=== PATIENT | female | born 2000 | race Caucasian/White ===

== ENCOUNTER 2020-07-31 11:24 | Outpatient (REF) | payer OTHER, SELFPAY | END 2020-07-31 11:25 | disposition home or self-care (01) | LOC: HO.LAB 11:24 | PROVIDERS: Visit Provider Internal Medicine | DX: Z20.828 Contact with and (suspected) exposure to other viral communicable diseases (principal) | CPT/HCPCS: C9803; U0003 ==

== ENCOUNTER 2020-09-04 22:12 | Emergency (ER) | payer OTHER, SELFPAY ==
[2020-09-04 22:37] VITALS: BP 129/80; PULSE 92; RESP 17; TEMP 36.7; O2SAT 98; BMI 33.6
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
[2020-09-04] MEDS: Ibuprofen 600 MG TABLET PO (22:49)
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
--- NOTE | 2020-09-04 23:28 | PC.NURSE ---
PT AMB TO RADIOLOGY.
== END 2020-09-04 23:59 | disposition home or self-care (01) ==
PROVIDERS: Emergency Provider Internal Medicine
DX: S39.012A Strain of muscle, fascia and tendon of lower back, initial encounter (principal); V43.62XA Car passenger injured in collision with other type car in traffic accident, initial encounter; Y93.89 Activity, other specified; Y92.414 Local residential or business street as the place of occurrence of the external cause; Y99.9 Unspecified external cause status
CPT/HCPCS: 72100; 99283; 99284

== ENCOUNTER 2021-01-26 22:26 | Emergency (ER) | payer OTHER, SELFPAY ==
--- NOTE | ~2021-01-26 | XR_ITS ---
EXAMINATION: CHEST 2 VIEWS CLINICAL INFORMATION: COUGH . COMPARISON: No recent pertinent prior studies are available for comparison. TECHNIQUE: PA and lateral views of the chest obtained. FINDINGS: The lungs are well expanded. No focal infiltrate, effusion, edema, or pneumothorax. Cardiac and mediastinal silhouettes are within normal limits for technique. No acute bony abnormality seen XR/XR chest 2V IMPRESSION: No evidence of acute disease
[2021-01-26 22:34] VITALS: BP 138/93; PULSE 114; RESP 22; TEMP 36.9; O2SAT 95; BMI 35.4
[2021-01-26 23:49] LABS: Influenza A PCR NEGATIVE (Negative); Influenza B PCR NEGATIVE (Negative); Resp Syncy Virus RNA Qual PCR NEGATIVE (Negative); SARS COV2 PCR INHOUSE NEGATIVE (Negative)
--- NOTE | 2021-01-27 00:59 | ED_ITS ---
HPI - URI/Sore Throat General Chief Complaint: Upper Respiratory Symptoms Stated Complaint: sob,cough Time Seen by Provider: 01/27/21 00:48 Source: patient Mode of arrival: ambulatory Limitations: no limitations History of Present Illness MD elicited complaint: cough and rhinorrhea Pertinent past history: asthma Onset (ago): week(s) (2) Consistency: intermittent Severity: moderate Description of mucous: clear Able to tolerate fluids by mouth: Yes Exacerbating factors: supine positioning Relieving factors: nothing Associated symptoms: rhinorrhea and cough Treatments prior to arrival: other (trying her inhaler with some relief) Related Data Previous Rx's Medication Instructions Recorded ibuprofen 600 mg PO Q6H PRN #20 tab 09/04/20 cetirizine 10 mg tablet 10 mg PO DAILY PRN 60 Days #60 tab 12/29/20 albuterol sulfate 90 mcg/actuation 2 puff PO Q4-6H PRN #8.5 g 01/14/21 aerosol inhaler albuterol sulfate 2 puff INHALATION QID PRN #6.7 g 01/27/21 fluticasone propionate 1 spray INTRANASAL DAILY #16 g 01/27/21 prednisone 40 mg PO DAILY 4 Days #8 tab 01/27/21 Allergies Allergy/AdvReac Type Severity Reaction Status Date / Time No Known Allergies Allergy Verified 01/26/21 22:34 Review of Systems Review of Systems: Constitutional : No Fever, No Chills ENT/Mouth : No Hoarseness, No sore throat, No Rhinorrhea Eyes: No Redness, No Discharge, No Vision Changes Cardiovascular : No Chest Pain, positive SOB, positive Dyspnea on Exertion, No Edema Respiratory : positive Cough, No Sputum, positive Wheezing, Gastrointestinal : No Nausea, No Vomiting, No Diarrhea, No abdominal Pain Genitourinary : No Dysuria, No Hematuria Musculoskeletal : No joint pain, No Myalgias Skin : No rash Neuro : No Weakness, No Numbness, No Headache Psych : No anxiety, depression Heme/Lymph: No Bruising, No Bleeding Endocrine : No Polyuria, No Polydipsia All other systems reviewed and are negative PMFSH Past Medical History Attestation statement: The following information was validated with the patient. Medical History Asthma Asthma Seasonal allergies Social History Social History Smoking Status: Never smoker Advance Directives: No Advance Directives Information Provided: No Patient : No Physical Exam Vital Signs: Vital Signs: Last Vital Signs Temp 98.0 F 01/27/21 01:01 Pulse 98 01/27/21 01:01 Resp 18 01/27/21 01:01 BP 133/84 01/27/21 01:01 Pulse Ox 100 01/27/21 01:01 Body Mass Index 35.4 Appearance: Alert. Oriented X3. No acute distress. Eyes: Pupils equal, round and reactive to light. ENT: Pharynx normal. Neck: Normal inspection. Neck supple. CVS: Normal heart rate and rhythm. Pulses normal. Respiratory: No respiratory distress. Breath sounds diffuse end exp wheezes mil d Abdomen: Soft and nontender. Skin: Skin warm and dry. Normal skin color. Normal skin turgor. Extremities: No lower extremity edema. No calf ttp Neuro: Oriented X 3. No motor deficit. No sensory deficit. MDM - URI/Sore Throat MDM Narrative Medical decision making narrative: 20 yo female with asthma here with nighttime cough and some wheezing suspect allergies has post nasal drip, at this time CXR, COVID swab negative, start on nasal spray and oral steroids, has INH in hand - took 4 puffs in the ED wheezing improved Lab Data Labs: Lab Results 01/26/21 Range/Units 22:58 Coronavirus (PCR) NEGATIVE (Negative) Influenza Type A (PCR) NEGATIVE (Negative) Influenza Type B (PCR) NEGATIVE (Negative) RSV RNA Qual (PCR) NEGATIVE (Negative) Discharge Plan Discharge Clinical Impression: Seasonal allergies Asthma Qualifiers: Asthma severity: moderate Asthma persistence: persistent Asthma complication type: with acute exacerbation Qualified Code(s): J45.41 - Moderate persistent asthma with (acute) exacerbation Patient Disposition: Home, Self-Care Instructions: Asthma (ED), Allergies (ED) Additional Instructions: return to ED for any worsening symptoms or concerns Prescriptions: New prednisone 20 mg tablet 40 mg PO DAILY 4 Days Qty: 8 RF: 0 albuterol sulfate 90 mcg/actuation HFA aerosol inhaler 2 puff inhalation QID PRN (Reason: shortness of breath or wheezing) Qty: 6.7 RF: 0 fluticasone propionate 50 mcg/actuation spray,suspension 1 spray intranasal DAILY Qty: 16 RF: 0 No Action albuterol sulfate 90 mcg/actuation HFA aerosol inhaler 2 puff PO Q4-6H PRN (Reason: for wheezing) Qty: 8.5 RF: 0 ibuprofen 600 mg tablet 600 mg PO Q6H PRN (Reason: pain) Qty: 20 RF: 0 cetirizine [Zyrtec] 10 mg tablet 10 mg PO DAILY PRN (Reason: allergy symptoms) 60 Days Qty: 60 RF: 2 Stand Alone Forms: Work/School Release
[2021-01-27 01:01] VITALS: BP 133/84; PULSE 98; RESP 18; TEMP 36.7; O2SAT 100
--- NOTE | 2021-01-27 01:02 | PC.NURSE ---
Dr Reynoso at bedside assessing pt. Pt aaox4, ambulatory with steady gait, reports significant post nasal drip and unproductive cough.
[2021-01-27] MEDS: Albuterol Sulfate 90 MCG 8 GM INHALER 4 PUFF INHALE (01:18)
[2021-01-27] MEDS: predniSONE 20 MG TABLET 60 MG PO (01:18)
== END 2021-01-27 01:39 | disposition home or self-care (01) ==
PROVIDERS: Emergency Provider Emergency Medicine
DX: J45.41 Moderate persistent asthma with (acute) exacerbation (principal); R05 Cough; R06.02 Shortness of breath; Z79.899 Other long term (current) drug therapy; Z20.822 Contact with and (suspected) exposure to COVID-19
CPT/HCPCS: 0241U; 36415; 71046; 99284

== ENCOUNTER 2021-05-10 13:00 | Emergency (ER) | payer OTHER, SELFPAY ==
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
[2021-05-10 13:37] VITALS: BP 127/74; PULSE 93; O2SAT 96
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
== END 2021-05-10 13:40 | disposition left against medical advice (07) ==
PROVIDERS: Emergency Provider Emergency Medicine
DX: S50.311A Abrasion of right elbow, initial encounter (principal); M79.631 Pain in right forearm; V43.52XA Car driver injured in collision with other type car in traffic accident, initial encounter; Y93.9 Activity, unspecified; Y92.410 Unspecified street and highway as the place of occurrence of the external cause; Y99.9 Unspecified external cause status; Z79.899 Other long term (current) drug therapy
CPT/HCPCS: 99283

== ENCOUNTER 2021-05-20 11:37 | Emergency (ER) | payer OTHER, SELFPAY ==
--- NOTE | ~2021-05-20 | XR_ITS ---
EXAMINATION: XR KNEE, LEFT CLINICAL INFORMATION: Left knee pain and bruising COMPARISON: None TECHNIQUE: Four views of the left knee. FINDINGS: Bones and soft tissues are normal. No fracture or joint effusion. Alignment is anatomic. Joint spaces are well maintained. No abnormal soft tissue calcification. XR/XR knee LT 4V IMPRESSION: Normal left knee.
[2021-05-20 11:42] VITALS: BP 130/72; PULSE 88; RESP 18; TEMP 36.9; O2SAT 99; BMI 38.2
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
== END 2021-05-20 13:19 | disposition home or self-care (01) ==
PROVIDERS: Emergency Provider Emergency Medicine; PCP Pediatrics
DX: S80.02XA Contusion of left knee, initial encounter (principal); M25.562 Pain in left knee; X58.XXXA Exposure to other specified factors, initial encounter; Y93.9 Activity, unspecified; Y92.9 Unspecified place or not applicable; Y99.9 Unspecified external cause status; Z79.899 Other long term (current) drug therapy
CPT/HCPCS: 73564; 99283

== ENCOUNTER 2021-10-25 17:40 | Emergency (ER) | payer OTHER, SELFPAY ==
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
[2021-10-25 17:43] VITALS: BP 119/72; PULSE 98; RESP 18; TEMP 36.4; O2SAT 96; BMI 37.2
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
== END 2021-10-25 19:49 | disposition home or self-care (01) ==
PROVIDERS: Emergency Provider Emergency Medicine
DX: S22.41XA Multiple fractures of ribs, right side, initial encounter for closed fracture (principal); R06.02 Shortness of breath; R10.9 Unspecified abdominal pain; R07.81 Pleurodynia; V49.40XA Driver injured in collision with unspecified motor vehicles in traffic accident, initial encounter; Y93.9 Activity, unspecified; Y92.410 Unspecified street and highway as the place of occurrence of the external cause; Y99.9 Unspecified external cause status; Z79.899 Other long term (current) drug therapy
CPT/HCPCS: 71101; 99283

== ENCOUNTER 2022-11-22 11:58 | Emergency (ER) | payer OTHER, SELFPAY ==
[2022-11-22 12:35] VITALS: BP 159/85; PULSE 106; RESP 20; TEMP 36.1; O2SAT 96; BMI 39.8
--- NOTE | 2022-11-22 12:36 | ED.ASTHMA ---
HPI - Asthma General Chief Complaint: Dyspnea <SHELLI Marshall - Last Filed: 11/22/22 12:40> Stated Complaint: asthma attack past 2 days, <SHELLI Marshall - Last Filed: 11/22/22 12:40> Time Seen by Provider: 11/22/22 12:54 <SHELLI Marshall - Last Filed: 11/22/22 12:40> Source: patient <SHELLI Mensah Last Filed: 11/22/22 16:41> Mode of arrival: ambulatory <SHELLI Mensah Last Filed: 11/22/22 16:41> Limitations: no limitations <SHELLI Mensah Last Filed: 11/22/22 16:41> History of Present Illness HPI Narrative: Patient is a 22 year old assigned female at with a history of asthma and is currently 6 months presenting to the emergency department today with persistent wheezing. Patient states that she has had worsening wheezing over the last couple of days and her inhaler isn't helping as much as it was now. Patient denies any dizziness, lightheadedness, abdominal pain, nausea, vomiting, fever, chills, blurry vision, double vision, loss of vision, chest pain, difficulty breathing, shortness of breath, back pain, night sweats, pain with urination, increased urinary frequency, increased urinary urgency, blood in her urine or stool, syncope or a near syncopal episode, recent trauma or falls, bowel incontinence, bladder incontinence, bowel retention, bladder retention, or any other complaints at this time. <SHELLI Mensah - Last Filed: 11/22/22 16:41> Onset (ago): day(s) <SHELLI Mensah - Last Filed: 11/22/22 16:41> Severity: mild <SHELLI Mensah Last Filed: 11/22/22 16:41> Associated symptoms: productive cough <SHELLI Mensah Last Filed: 11/22/22 16:41> Treatments Prior to Arrival: inhaled bronchodilator <SHELLI Mensah Last Filed: 11/22/22 16:41> Related Data Home Medications: Previous Rx's Medication Instructions Recorded cetirizine 10 mg tablet (Zyrtec) 10 mg PO DAILY PRN allergy 01/27/22 symptoms 2 months #60 tabs fluticasone propionate 50 1 spray intranasal DAILY #16 grams 01/27/22 mcg/actuation nasal spray,suspension fluticasone propionate 44 1 inh inhalation BID #10.6 grams 07/22/22 mcg/actuation HFA aerosol inhaler (Flovent HFA) albuterol sulfate 90 mcg/actuation 2 puff PO QID PRN for wheezing 09/28/22 aerosol inhaler #6.7 ea albuterol sulfate 2.5 mg/0.5 mL 5 mg inhalation Q6H PRN 11/22/22 solution for nebulization bronchospasm 30 days #30 ea methylprednisolone 4 mg tablets in 4 mg PO DAILY #21 ea 11/22/22 a dose pack nebulizer and compressor #1 ea 11/22/22 <SHELLI Marshall - Last Filed: 11/22/22 12:40> Allergies/Adverse Reactions: Allergies Allergy/AdvReac Type Severity Reaction Status Date / Time No Known Allergies Allergy Verified 01/27/22 15:17 <SHELLI Marshall - Last Filed: 11/22/22 12:40> Review of Systems Constitutional: Constitutional: Reports no additional constitutional complaints, Denies chills, Denies fever(s) and Denies night sweats <SHELLI Mensah - Last Filed: 11/22/22 16:41> Eyes: Eyes: Reports no additional eye complaints, Denies blurry vision, Denies change in vision, Denies diplopia, Denies eye discharge, Denies loss of vision and Denies eye pain <SHELLI Mensah - Last Filed: 11/22/22 16:41> ENT: Denies dizziness <SHELLI Mensah - Last Filed: 11/22/22 16:41> Cardiovascular: Cardiovascular: Reports no additional cardiovascular complaints, Denies chest pain, Denies lightheadedness, Denies Loss of Consciousness and Denies dyspnea <SHELLI Mensah Last Filed: 11/22/22 16:41> Respiratory: Respiratory: Reports no additional respiratory complaints, Reports cough, Denies dyspnea and Reports wheezing <SHELLI Mensah Last Filed: 11/22/22 16:41> Gastrointestinal: Gastrointestinal: Reports no additional gastrointestinal complaints, Denies abdominal pain, Denies melena, Denies hematochezia, Denies change in bowel habits and Denies change in stool character <SHELLI Mensah - Last Filed: 11/22/22 16:41> Genitourinary: Genitourinary: Denies hematuria, Denies urinary frequency, Denies dysuria, Denies urinary incontinence, Denies urinary hesitancy and Denies urinary urgency <SHELLI Mensah - Last Filed: 11/22/22 16:41> Musculoskeletal: Musculoskeletal: Reports no additional musculoskeletal complaints, Denies numbness and Denies tingling <SHELLI Mensah - Last Filed: 11/22/22 16:41> Neurologic: Denies dizziness, Denies loss of vision, Denies numbness and Denies tingling <SHELLI Mensah - Last Filed: 11/22/22 16:41> Psychiatric: Psychiatric: Reports no additional psychiatric complaints <SHELLI Mensah - Last Filed: 11/22/22 16:41> Endocrine: Endocrine: Reports no additional endocrine complaints <SHELLI Mensah - Last Filed: 11/22/22 16:41> Hematologic/Lymphatic: Hematologic/Lymphatic: Reports no additional hematologic/lymphatic complaints <SHELLI Mensah - Last Filed: 11/22/22 16:41> Allergic/Immunologic: Allergic/Immunologic: Reports no additional allergic/immunologic complaints and Reports wheezing <SHELLI Mensah - Last Filed: 11/22/22 16:41> PMFSH Past Medical History Attestation statement: The following information was validated with the patient. <SHELLI Mensah - Last Filed: 11/22/22 16:41> Source: old records reviewed and nursing notes reviewed <SHELLI Mensah - Last Filed: 11/22/22 16:41> Medical History: Medical History Asthma Asthma History of rib fracture Left knee injury Seasonal allergies <SHELLI Marshall - Last Filed: 11/22/22 12:40> Surgical History: Surgical History No pertinent past surgical history <SHELLI Marshall - Last Filed: 11/22/22 12:40> Family History Family History: Family History Mother No problems noted. Father Bipolar disorder Alcoholic Sister No problems noted. Other Mental health disorder <SHELLI Marshall - Last Filed: 11/22/22 12:40> Social History Social History: Social History Housing: Apartment Alcohol intake: never Patient Tobacco Use Status: Former Tobacco user e-Cigarette/Vaping Use: Currently Using Second Hand Smoke Exposure: No Advance Directives: No Advance Directives Information Provided: Yes service: No Current occupational status: unemployed Cognitive needs: No Hearing needs: No Vision needs: Yes (glasses) <SHELLI Marshall - Last Filed: 11/22/22 12:40> Physical Exam Vital Signs: Vital Signs: Last Vital Signs Temp 97.0 F 11/22/22 12:35 Pulse 108 H 11/22/22 13:02 Resp 11/22/22 13:02 BP 159/85 H 11/22/22 12:35 Pulse Ox 96 11/22/22 12:35 O2 Del Method 11/22/22 12:35 BMI result Body Mass Index 39.8 <SHELLI Marshall - Last Filed: 11/22/22 12:40> Vital Signs: Last Vital Signs Temp 97.0 F 11/22/22 12:35 Pulse 108 H 11/22/22 13:02 Resp 17 11/22/22 13:02 BP 159/85 H 11/22/22 12:35 Pulse Ox 96 11/22/22 12:35 O2 Del Method 11/22/22 12:35 BMI result Body Mass Index 39.8 <SHELLI Mensah - Last Filed: 11/22/22 16:41> Const: General: cooperative, no acute distress, alert and awake <SHELLI Mensah - Last Filed: 11/22/22 16:41> Nutritional Appearance: well nourished <SHELLI Mensah - Last Filed: 11/22/22 16:41> Orientation/consciousness: patient oriented x3 <SHELLI Mensah - Last Filed: 11/22/22 16:41> Limitations: no limitations <SHELLI Mensah - Last Filed: 11/22/22 16:41> HEENT: Head: Yes normal to inspection and Yes atraumatic <Jaylin Saltercyndi [place] - Last Filed: 11/22/22 16:41> Ears: hearing grossly normal bilaterally and external ears normal <Jaylin Gallardo [place] - Last Filed: 11/22/22 16:41> General nose exam: Normal external nose present, no nasal discharge noted and no epistaxis <Jaylinavril Saltercyndi VT - Last Filed: 11/22/22 16:41> Face and sinus: Yes normal facial exam, No abrasion and No laceration <Jaylin Saltercyndi VT - Last Filed: 11/22/22 16:41> Mouth: Normal oral and palatal mucosa present, no drooling and no muffled voice <Jaylin Saltercyndi VT - Last Filed: 11/22/22 16:41> Eyes: General: appearance normal, both eyes and all related structures <Jaylin Gallardo VT - Last Filed: 11/22/22 16:41> Periorbital: periorbital findings normal <Jaylin Saltercyndi VT - Last Filed: 11/22/22 16:41> Eyelids: Yes eyelids normal <Jaylin Saltercyndi VT - Last Filed: 11/22/22 16:41> Conjunctivae: conjunctivae normal <Jaylin Saltercyndi VT - Last Filed: 11/22/22 16:41> Pupils: Equal, round and reactive pupils present <Jaylin Sami VT - Last Filed: 11/22/22 16:41> EOM: EOMs intact bilaterally <Jaylni Sami VT - Last Filed: 11/22/22 16:41> Neck: Neck: Yes normal visual inspection, Yes full ROM and Yes no lymphadenopathy <Jaylinavril Saltercyndi VT - Last Filed: 11/22/22 16:41> Chest: Chest palpation & inspection: normal inspection of the chest <Jaylin Gallardo VT - Last Filed: 11/22/22 16:41> Resp: Effort & Inspection: normal respiratory effort and able to speak in complete sentences <Jaylin Gallardo VT - Last Filed: 11/22/22 16:41> Auscultation: wheezes throughout <Jaylin Gallardo VT - Last Filed: 11/22/22 16:41> Cardio: Rate: regular rate <Jaylin Gallardo PA - Last Filed: 11/22/22 16:41> Rhythm: regular rhythm <Jaylin Gallardo PA - Last Filed: 11/22/22 16:41> GI: Inspection: Yes normal to inspection <Jaylin Gallardo PA - Last Filed: 11/22/22 16:41> Palpation (GI): Soft to palpation, not firm, nontender, no guarding and not rigid <Jaylin Gallardo PA - Last Filed: 11/22/22 16:41> Neuro: General: patient oriented x3 and moves all extremities <Jaylin Gallardo PA - Last Filed: 11/22/22 16:41> Cranial nerves: Yes Equal, round and reactive pupils present <Jaylin Gallardo PA - Last Filed: 11/22/22 16:41> Cognition (Neuro): normal cognition <Jaylin Gallardo PA - Last Filed: 11/22/22 16:41> Motor exam (neuro): 5/5 motor strength present throughout <Jaylin Gallardo PA - Last Filed: 11/22/22 16:41> Sensory Exam: Normal double simultaneous stimulation for sensation <Jaylin Gallardo PA - Last Filed: 11/22/22 16:41> Coordination: [id number] test normal <Jaylin Gallardo PA - Last Filed: 11/22/22 16:41> Extrem: General: Yes normal to inspection, Yes full ROM and Yes capillary refill normal <Jaylin Saltercyndi PA - Last Filed: 11/22/22 16:41> Psych: Appearance: grossly normal <Jaylin Gallardo PA - Last Filed: 11/22/22 16:41> Mental Status: mental status grossly normal <Jaylin Saltercyndi PA - Last Filed: 11/22/22 16:41> Affect: normal affect <Jaylin Saltercyndi PA - Last Filed: 11/22/22 16:41> Attitude: cooperative <Jaylin Saltercyndi PA - Last Filed: 11/22/22 16:41> Thought process: Normal thought process present <Jaylin SHELLI Gallardo - Last Filed: 11/22/22 16:41> Thought content: Normal thought content present <SHELLI Mensah - Last Filed: 11/22/22 16:41> Insight: Good insight present (Psych) <SHELLI Mensah - Last Filed: 11/22/22 16:41> Course Course Course Narrative: CIARA-12:38PM -22yoF with a PMHx of asthma who is currently [id number] currently 6 month being followed by [facility] who is presenting to the ER with complaints of 2 days of cough with sputum production with shortness of breath/wheezing. Reports that she does not have albuterol machine. Reports she did take some steroids that she had left over in the past today although no symptomatic relief. She denies any OBGYN complaints which include abdominal pain, vaginal bleeding. She denies any fevers, chest pain or any other symptoms complaints or concerns at this time. Plan: Patient [place] [facility] [place], COVID/RSV/flu swab and further evaluation treatment. <SHELLI Marshall - Last Filed: 11/22/22 12:40> Medications Administered Discontinued Medications Generic Name Dose Route Start Last Admin Trade Name Freq PRN Reason Stop Dose Admin Albuterol Sulfate 10 mg 11/22/22 12:39 11/22/22 12:58 Albuterol Sulfate (0.083%) 2.5 Mg/3 Ml Vial.Neb INHALE 11/22/22 12:40 10 mg ONCE ONE Administration Albuterol Sulfate 2 puff 11/22/22 13:01 11/22/22 13:27 Albuterol Sulfate 90 Mcg 8 Gm Inhaler INHALE 11/22/22 13:02 2 puff ONCE ONE Administration <SHELLI Marshall - Last Filed: 11/22/22 12:40> Medications Administered Discontinued Medications Generic Name Dose Route Start Last Admin Trade Name Freq PRN Reason Stop Dose Admin Albuterol Sulfate 10 mg 11/22/22 12:39 11/22/22 12:58 Albuterol Sulfate (0.083%) 2.5 Mg/3 Ml Vial.Neb INHALE 11/22/22 12:40 10 mg ONCE ONE Administration Albuterol Sulfate 2 puff 11/22/22 13:01 11/22/22 13:27 Albuterol Sulfate 90 Mcg 8 Gm Inhaler INHALE 11/22/22 13:02 2 puff ONCE ONE Administration <SHELLI Mensah - Last Filed: 11/22/22 16:41> Medical Decision Making Medical Decision Making [facility] Narrative: Patient is a 22 year old assigned female at with a history of asthma and being 6 months presenting to the emergency department today with an asthma exacerbation. Patient's physical exam showed wheezing but was otherwise unremarkable. Patient's COVID/RSV/Influenza swab was negative. I explained my physical exam findings as well as all test results to the patient. I answered all questions asked by the patient. Patient received a breathing treatment and safe methylpred which she stated helped her symptoms significantly. I stressed the importance of the patient taking her medication as prescribed. I stressed the importance of the patient following up with her primary care provider. I stressed the importance of the patient returning to the emergency department immediately if her symptoms were to worsen or if she were to develop any dizziness, shortness of breath, difficulty breathing, chest pain, blurry vision, loss of vision, nausea, vomiting, abdominal pain, fever, chills, back pain, or any other complaints. Patient verbalized agreement and understanding with this treatment plan and discharge. <SHELLI Mensah - Last Filed: 11/22/22 16:41> Differential Diagnosis Differential Diagnoses: The differential diagnosis associated with the presentation includes <SHELLI Mensah - Last Filed: 11/22/22 16:41> asthma <SHELLI Mensah - Last Filed: 11/22/22 16:41> Lab Data [facility] Lab Attestation statement: I reviewed the patient's lab results. <SHELLI Mensah - Last Filed: 11/22/22 16:41> Labs: Lab Results 11/22/22 Range/Units 13:02 Influenza Type A (PCR) NEGATIVE (Negative) Influenza Type B (PCR) NEGATIVE (Negative) RSV RNA Qual (PCR) NEGATIVE (Negative) SARS-CoV-2 RNA (RT-PCR) NEGATIVE (Negative) <SHELLI Marshall - Last Filed: 11/22/22 12:40> Lab Results 11/22/22 Range/Units 13:02 Influenza Type A (PCR) NEGATIVE (Negative) Influenza Type B (PCR) NEGATIVE (Negative) RSV RNA Qual (PCR) NEGATIVE (Negative) SARS-CoV-2 RNA (RT-PCR) NEGATIVE (Negative) <SHELLI Mensah - Last Filed: 11/22/22 16:41> Discharge Plan Discharge Clinical Impression: Asthma <SHELLI Marshall - Last Filed: 11/22/22 12:40> Patient Disposition: Home, Self-Care <SHELLI Marshall - Last Filed: 11/22/22 12:40> Instructions: Asthma (ED) <SHELLI Marshall - Last Filed: 11/22/22 12:40> Additional Instructions: Follow up with your primary care provider. Return to the emergency department immediately if your symptoms worsen or if you develop any dizziness, shortness of breath, difficulty breathing, chest pain, blurry vision, loss of vision, nausea, vomiting, abdominal pain, fever, chills, back pain, or any other complaints. <SHELLI Marshall - Last Filed: 11/22/22 12:40> Prescriptions: New methylprednisolone 4 mg tablets,dose pack 4 mg PO DAILY Qty: 21 0RF (DME) nebulizer and compressor Device See Rx Instructions .Route Qty: 1 0RF Rx Instructions: As directed albuterol sulfate 2.5 mg/0.5 mL solution for nebulization 5 mg inhalation Q6H PRN (Reason: bronchospasm) 30 Days Qty: 30 0RF No Action Flovent HFA 44 mcg/actuation HFA aerosol inhaler 1 inh inhalation BID Qty: 10.6 1RF Rx Instructions: administer with spacer albuterol sulfate 90 mcg/actuation HFA aerosol inhaler 2 puff PO QID PRN (Reason: for wheezing) Qty: 6.7 2RF cetirizine [Zyrtec] 10 mg tablet 10 mg PO DAILY PRN (Reason: allergy symptoms) 60 Days Qty: 60 2RF fluticasone propionate 50 mcg/actuation spray,suspension 1 spray intranasal DAILY Qty: 16 0RF Rx Instructions: administer into each nostril <SHELLI Marshall - Last Filed: 11/22/22 12:40> Referrals: Maria De Jesus Linares FNP [Primary Care Provider] - <SHELLI Marshall Last Filed: 11/22/22 12:40> Interventions: ED Discharge Assessment Last Done: 11/22/22 14:06 <SHELLI Marshall Last Filed: 11/22/22 12:40> Discharge Date/Time: 11/22/22 14:07 <SHELLI Marshall - Last Filed: 11/22/22 12:40> Print Language: Slovak <SHELLI Marshall - Last Filed: 11/22/22 12:40>
[2022-11-22] MEDS: Albuterol Sulfate (0.083%) 2.5 MG/3 ML VIAL.NEB 10 MG INHALE (12:58)
[2022-11-22 13:02] VITALS: PULSE 108; RESP 17; O2SAT 99
[2022-11-22] MEDS: Albuterol Sulfate 90 MCG 8 GM INHALER 2 PUFF INHALE (13:27)
[2022-11-22 13:51] LABS: Influenza A PCR NEGATIVE (Negative); Influenza B PCR NEGATIVE (Negative); Resp Syncy Virus RNA Qual PCR NEGATIVE (Negative); SARS COV2 PCR INHOUSE NEGATIVE (Negative)
== END 2022-11-22 14:07 | disposition home or self-care (01) ==
PROVIDERS: Physician Assistant Medical; Emergency Provider Student in an Organized Health Care Education/Training Program; PCP Nurse Practitioner Family
DX: O26.92 Pregnancy related conditions, unspecified, second trimester (principal); R06.02 Shortness of breath; Z3A.24 24 weeks gestation of pregnancy; Z20.822 Contact with and (suspected) exposure to COVID-19; Z20.828 Contact with and (suspected) exposure to other viral communicable diseases; Z87.891 Personal history of nicotine dependence; Z79.899 Other long term (current) drug therapy
CPT/HCPCS: 0241U; 94640; 99283; 99284

== ENCOUNTER 2023-03-13 07:02 | Emergency (ER) | payer OTHER, SELFPAY ==
[2023-03-13 07:11] VITALS: BP 155/84; PULSE 111; RESP 18; TEMP 36.8; O2SAT 95; BMI 42.5
--- NOTE | 2023-03-13 07:22 | PC.NURSE ---
Pt alert/oriented. Reports left sided ear pain with swelling and throat pain for 3 days. Took nleft over Amoxicillin x 2 without relief. States worsening pain overnight into jaw. No drainage or external redness to ear noted. Pt , due date 03/20/23, denies any related complaints at this time. Strep swab sent
--- NOTE | 2023-03-13 07:24 | ED.URI ---
HPI - URI/Sore Throat General Chief Complaint: Ear Problems Stated Complaint: L ear pain Time Seen by Provider: 03/13/23 07:15 Source: patient, RN notes reviewed and old records reviewed Mode of arrival: ambulatory Limitations: no limitations History of Present Illness HPI Narrative: 22 year-old female, 9 months , with history of asthma presenting to ED with left ear pain and sore throat x 3 days. Reports soreness around the left ear with radiation into the left jaw along with decreased hearing in the left ear. No drainage from the ear. Patient has been taking an old Amoxicillin rx bid x3 days with minimal relief. Denies fever, chills, sinus pressure, cough, difficulty swallowing, SOB, abdominal pain, N/V, vaginal discharge or bleeding. No known sick contacts. MD elicited complaint: other (ear pain) Related Data Previous Rx's Medication Instructions Recorded cetirizine 10 mg tablet (Zyrtec) 10 mg PO DAILY PRN allergy 01/27/22 symptoms 2 months #60 tabs fluticasone propionate 50 1 spray intranasal DAILY #16 grams 01/27/22 mcg/actuation nasal spray,suspension fluticasone propionate 44 1 inh inhalation BID #10.6 grams 07/22/22 mcg/actuation HFA aerosol inhaler (Flovent HFA) albuterol sulfate 2.5 mg/0.5 mL 5 mg inhalation Q6H PRN 11/22/22 solution for nebulization bronchospasm 30 days #30 ea methylprednisolone 4 mg tablets in 4 mg PO DAILY #21 ea 11/22/22 a dose pack nebulizer and compressor #1 ea 11/22/22 albuterol sulfate 90 mcg/actuation 2 puff PO QID PRN for wheezing 02/15/23 aerosol inhaler #6.7 ea amoxicillin 875 mg tablet 875 mg PO BID 7 days #14 tabs 03/13/23 Allergies Allergy/AdvReac Type Severity Reaction Status Date / Time No Known Allergies Allergy Verified 03/13/23 07:10 Review of Systems Review of Systems: Constitutional:No Fever, No Chills ENT/Mouth: + Ear Pain, No Nasal Congestion, No Sinus Pain, No Hoarseness, + sore throat, No Rhinorrhea, No Swallowing Difficulty Cardiovascular: No Chest Pain, No SOB Respiratory: No Cough, No Sputum, No Wheezing Gastrointestinal: No Nausea, No Vomiting, No Diarrhea, No Constipation, No Abdominal pain Genitourinary: No Dysuria, No Urinary Frequency, No Hematuria, No Urgency, No Flank Pain Musculoskeletal: No joint pain, No Myalgias, No Joint Swelling Skin: No Skin Lesions, No rash Yes all other systems are reviewed and are negative Constitutional: Constitutional: Reports as per [facility] Past Medical History Attestation statement: The following information was validated with the patient. Source: old records reviewed Medical History Asthma Asthma History of rib fracture Left knee injury Seasonal allergies Surgical History No pertinent past surgical history Family History Family History Mother No problems noted. Father Bipolar disorder Alcoholic Sister No problems noted. Other Mental health disorder Social History Social History Housing: Apartment Alcohol intake: never Patient Tobacco Use Status: Former Tobacco user Smoked in Last 30 Days: No e-Cigarette/Vaping Use: Currently Using Second Hand Smoke Exposure: No Use of substances other than those prescribed or required for medical reasons: No Advance Directives: No Advance Directives Information Provided: Yes Patient : Yes service: No Current occupational status: unemployed Cognitive needs: No Hearing needs: No Vision needs: Yes (glasses) Physical Exam Vital Signs: Vital Signs: Last Vital Signs Temp 98.3 F 03/13/23 07:27 Pulse 109 H 03/13/23 07:27 Resp 16 03/13/23 07:27 BP 133/82 03/13/23 07:27 Pulse Ox 97 03/13/23 07:27 O2 Del Method Room Air 03/13/23 07:27 BMI result Body Mass Index 42.5 Const: General: cooperative, healthy appearing, no acute distress, alert and awake Nutritional Appearance: other (gravid) Orientation/consciousness: patient oriented x3 Limitations: no limitations HEENT: Other: + buldging left TM with effusion and erythema. No TM perforation. No mastoid tenderness Tolerating secretions, speaking in full sentences. Head: Yes normal to inspection and Yes atraumatic Ears: hearing grossly normal bilaterally, external ears normal, TM normal on the right, EAC's normal, mastoids normal and no periauricular adenopathy General nose exam: Normal external nose present Face and sinus: Yes normal facial exam Mouth: Normal oral and palatal mucosa present, tongue normal, oropharynx normal, moist mucous membranes, no audible dysphonia, no drooling and no muffled voice Throat: Yes posterior oropharynx normal, Yes tonsils normal, Yes uvula midline and No peritonsillar mass Eyes: General: appearance normal, both eyes and all related structures Pupils: Equal, round and reactive pupils present EOM: EOMs intact bilaterally Neck: Neck: Yes normal visual inspection, Yes no lymphadenopathy and Yes supple Resp: Effort & Inspection: normal respiratory effort and no respiratory distress Auscultation: clear to auscultation bilaterally Cardio: Rate: regular rate Heart sounds: S1 normal heart sound present and S2 normal heart sound present GI: Inspection: Yes normal to inspection Palpation (GI): Soft to palpation, nontender, no guarding and not rigid Skin: Rashes: no rashes Wounds: no wounds Neuro: General: patient oriented x3 Cranial nerves: Yes Equal, round and reactive pupils present Gait exam (Neuro): Normal gait present Extrem: General: Yes normal to inspection Course Course Course Narrative: Strep A test negative. History and physical exam consistent with AOM. Will prescribe 7 day course of amoxicillin as patient is 9 months . Discussed completing the entire course of abx. Medical Decision Making Medical Decision Making [facility] Narrative: 22 year-old female, 9 months , with history of asthma presenting to ED with left ear pain and sore throat x 3 days. Vital signs initially notable for elevated BP, now normalized and otherwise unremarkable. Physical exam significant for buldging left TM with effusion and erythema. No TM perforation or mastoid tenderness. Oropharynx without erythema or masses, uvula midline, tolerating secretions and speaking in full sentences. Clinical suspcion for AOM vs otitis externa vs strep throat. Low suspicion for [employer], retropharyngeal abscess, mastoiditis, chronis oititis externa, malignant OM Plan: strep test, re-eval Please refer to course for remaining clinical decision making, interpretation of labs/imaging results, and discussions with consultants and/or family members. Differential Diagnosis Differential Diagnoses: The differential diagnosis associated with the presentation includes As above Lab Data [facility] Lab Attestation statement: I reviewed the patient's lab results. Labs: Lab Results 03/13/23 Range/Units 07:18 S. pyogenes GrpA BLANCA Negative (Negative) External Record Review External record reviewed: Inpatient record, Office record, Outpatient record, Prior outpatient labs, Prior outpatient radiology, Primary care record and Outside ED record Tests considered The following testing was considered but not selected: As above Prescription Management I considered prescription management with: Pain Medication and Antibiotic Chronic Conditions Patient?s care impacted by: Other () Discharge Plan Discharge Clinical Impression: Otitis media Patient Disposition: Home, Self-Care Instructions: Ear Infection (ED) Additional Instructions: You have an inner ear infection. Amoxicillin as an antibiotic please take as prescribed In addition take Tylenol for pain/fever if symptoms persist or worsen you develop hearing loss, drainage from ear, fever return to the ED Notify your OBGYN Prescriptions: New amoxicillin 875 mg tablet 875 mg PO BID 7 Days Qty: 14 0RF No Action Flovent HFA 44 mcg/actuation HFA aerosol inhaler 1 inh inhalation BID Qty: 10.6 1RF Rx Instructions: administer with spacer albuterol sulfate 90 mcg/actuation HFA aerosol inhaler 2 puff PO QID PRN (Reason: for wheezing) Qty: 6.7 2RF methylprednisolone 4 mg tablets,dose pack 4 mg PO DAILY Qty: 21 0RF (DME) nebulizer and compressor Device See Rx Instructions .Route Qty: 1 0RF Rx Instructions: As directed albuterol sulfate 2.5 mg/0.5 mL solution for nebulization 5 mg inhalation Q6H PRN (Reason: bronchospasm) 30 Days Qty: 30 0RF cetirizine [Zyrtec] 10 mg tablet 10 mg PO DAILY PRN (Reason: allergy symptoms) 60 Days Qty: 60 2RF fluticasone propionate 50 mcg/actuation spray,suspension 1 spray intranasal DAILY Qty: 16 0RF Rx Instructions: administer into each nostril Referrals: Maria De Jesus Linares FNP [Primary Care Provider] - Interventions: ED Discharge Assessment Last Done: 03/13/23 07:54 Discharge Date/Time: 03/13/23 08:17
[2023-03-13 07:27] VITALS: BP 133/82; PULSE 109; RESP 16; TEMP 36.8; O2SAT 97
== END 2023-03-13 08:17 | disposition home or self-care (01) ==
PROVIDERS: Emergency Provider Emergency Medicine Emergency Medical Services; PCP Nurse Practitioner Family
DX: O26.899 Other specified pregnancy related conditions, unspecified trimester (principal); H66.92 Otitis media, unspecified, left ear; J02.9 Acute pharyngitis, unspecified; J45.909 Unspecified asthma, uncomplicated
CPT/HCPCS: 87651; 99283; 99284

== ENCOUNTER 2023-11-22 09:16 | Outpatient (AMB) | payer OTHER, SELFPAY ==
--- NOTE | 2023-11-22 09:23 | A.OFFPC_ITS ---
Vital Signs 11/22/23 09:25 Height 5 ft 3 in Weight 251 lb 4 oz BMI 44.5 BP 110/62 Blood Pressure Location Lt brachial Position Sitting Intake Visit Reasons: Asthma Intake Note: Patient is here to follow up on Asthma. Orthopedic Shoe Fitter Required: No Coatings Inspector: Not Required per policy Accompanied by: Self / Same As Patient Allergies No Known Allergies Allergy (Verified 11/22/23 13:49) Medication List - Last Reconciled 11/22/23 by Tevin Shelton MD albuterol sulfate 90 mcg/actuation 2 puffs PO QID PRN albuterol sulfate 5 mg inhalation Q6H PRN 30 days cetirizine (Zyrtec) 10 mg PO DAILY PRN 2 months fluticasone propionate 50 mcg/actuation 1 spray intranasal DAILY nebulizer and compressor As directed Tobacco use date assessed: 11/22/23 Dental Screening Dental Screen Date: 11/22/23 Did you have a dental visit in the last 12 months?: Yes Did you have a dental problem in the last 6 months where you did not have access to dental care?: No Was dental information given to patient?: Patient has dentist HPI Asthma HPI Details 23-year-old female presents to the [facility] to discuss her medical condition. I will be assuming her care as her primary care provider has left the practice. Patient gives history of asthma. She has to use her nebulizer or inhaler 1 to 2 times a month. Usually when she is exposed to smoke, her wheezing symptoms get triggered. She recently delivered a baby and is currently not nursing the child. [facility] Medical History (Updated 11/22/23 @ 13:55 by Tevin Shelton MD) Morbid obesity with BMI of 40.0-44.9, adult History of rib fracture Left knee injury Asthma Seasonal allergies Asthma Surgical History No pertinent past surgical history Family History Mother No problems noted. Father Bipolar disorder Alcoholic Sister No problems noted. Other Mental health disorder Social History (Updated 11/22/23 @ 09:31 by SANTINO Quintanilla) Housing: Apartment Alcohol intake: never Patient Tobacco Use Status: Former Tobacco user e-Cigarette/Vaping Use: Former Use Second Hand Smoke Exposure: No service: No Current occupational status: unemployed Cognitive needs: No Hearing needs: No Vision needs: Yes (glasses) Questionnaire PHQ-9 Over the last 2 weeks, how often have you been bothered by any of the following problems? 1. Little interest or pleasure in doing things: not at all 2. Feeling down, depressed, or hopeless: not at all 3. Trouble falling or staying asleep, or sleeping too much: not at all 4. Feeling tired or having little energy: not at all 5. Poor appetite or overeating: not at all 6. Feeling bad about yourself - or that you are a failure or have let yourself or your family down: not at all 7. Trouble concentrating on things, such as reading the newspaper or watching television: not at all 8. Moving or speaking so slowly that other people could have noticed. Or the opposite - being so fidgety or restless that you have been moving around a lot more than usual: not at all 9. Thoughts that you would be better off or of hurting yourself in some way: not at all Total score: 0 Depression Screening Interpretation: Negative Depression Screening Done: Yes Source: Developed by Drs. Valerio Ace, Ann Duvall, Anselmo Cantu and colleagues, with an educational suresh from [employer]. Thrive Questionnaire Date Thrive assessed: 11/22/23 I am a: Patient What is your living situation today?: I have a steady place to live Within the past 12 months, did the food you bought not last and you didn't have the money to get more?: Never true Within the past 12 months, did you worry whether your food would run out before you got money to buy more?: Never true Do you have trouble paying for medicines?: No Do you have trouble getting transportation to medical appointments?: No Do you have trouble paying your heating and electricity bill?: No Do you have trouble taking care of your child, family member or friend?: No Do you have trouble with day-to-day activities such as bathing, preparing meals, shopping, managing finances, etc.?: No Are you currently unemployed and looking for a job?: No Are you interested in more education?: No Currently or been in a relationship where the following occur: no concerns reported THRIVE Score: 0 AUDIT C Alcohol Use Questionnaire (AUDIT-C) 1. How often do you have a drink containing alcohol?: Never Total Score: 0 DAY-7 AMB Questionnaire DAY-7 Date DAY - 7 assessed: 11/22/23 Feeling nervous, anxious, or on edge: 0 = Not at all Not being able to stop or control worryin = Not at all Worrying too much about different things: 0 = Not at all Trouble relaxin = Not at all Being so restless that it is hard to sit still: 0 = Not at all Becoming easily annoyed or irritable: 0 = Not at all Feeling afraid as if something awful might happen: 0 = Not at all Total DAY-7 score (0-4 normal; 5-9 mild; 10-14 moderate; 15-21 severe): 0 Source: Developed by Drs. Valerio Ace, Ann Duvall, Anselmo Cantu and colleagues, with an educational suresh from [employer]. Physical exam (Primary Care) Vital Signs: Last Vital Signs BP 110/62 11/22/23 09:25 Care Plan Goal for BP management: Blood pressure is in range. BMI result Body Mass Index 44.5 BMI Assessment/Plan discussion: High (Encouraged to lose 1 lb per week.) BMI High, discussed plan: lifestyle, weight reduction and dietary Tobacco/Smoking Status: Tobacco use Status Tobacco use date assessed 11/22/23 11/22/23 09:33 Patient Tobacco Use Status Former Tobacco user 11/22/23 09:33 e-Cigarette/Vaping Use Former Use 11/22/23 09:33 PHQ-9: PHQ-9 Score PHQ-9: Total score 0 11/22/23 09:33 Depression Screening Interpretation: Negative Thrive Assessment: Date of Thrive Assessment Date Thrive assessed 11/22/23 11/22/23 09:33 Currently or been in a relationship where the following occur: no concerns reported Const General: cooperative and healthy appearing Nutritional Appearance: well nourished Orientation/consciousness: patient oriented x3 Limitations: no limitations HENMT Head: Yes normal to inspection Eyes General: appearance normal, both eyes and all related structures Neck Neck: Yes normal visual inspection Chest Chest palpation & inspection: normal palpation of entire chest wall Resp Effort & Inspection: normal respiratory effort Neuro General: patient oriented x3 Assessment and Plan Assessment & Plan (1) Morbid obesity with BMI of 40.0-44.9, adult: Code(s): E66.01 - Morbid (severe) obesity due to excess calories; Z68.41 - Body mass index [BMI] 40.0-44.9, adult (2) Asthma: Code(s): J45.909 - Unspecified asthma, uncomplicated Qualifiers: Asthma severity: moderate Asthma persistence: persistent Asthma complication type: with acute exacerbation Qualified Code(s): J45.41 - Moderate persistent asthma with (acute) exacerbation Plan: Patient has mild intermittent asthma. This is controlled by albuterol only. Prescription provided to the patient. Medications: Refilled albuterol sulfate 90 mcg/actuation 2 puffs PO QID PRN 6.7 ea 2RF for wheezing J45.41 - Moderate persistent asthma with (acute) exacerbation nebulizer and compressor As directed 1 ea 0RF J45.909 - Unspecified asthma, uncomplicated albuterol sulfate 5 mg inhalation Q6H 30 days PRN 30 ea 0RF bronchospasm Coding Level of Care Code Est Pt Level 3 (87173) Diagnoses Morbid obesity with BMI of 40.0-44.9, adult E66.01; Z68.41 Mild intermittent asthma without complication J45.41 Asthma severity: moderate Asthma persistence: persistent Asthma complication type: with acute exacerbation
[2023-11-22 09:25] VITALS: BP 110/62; BMI 44.5
== END 2023-11-22 10:18 | disposition home or self-care (01) ==
PROVIDERS: PCP Nurse Practitioner Family; Visit Provider Internal Medicine
DX: E66.01 Morbid (severe) obesity due to excess calories (principal); Z68.41 Body mass index [BMI] 40.0-44.9, adult; J45.41 Moderate persistent asthma with (acute) exacerbation
CPT/HCPCS: 99213

== ENCOUNTER 2025-05-28 14:50 | Emergency (ER) | payer OTHER, SELFPAY ==
--- NOTE | ~2025-05-28 | XR_ITS ---
CLINICAL HISTORY: SOB 2 view chest x-ray Comparison: None provided Findings: Heart size is normal. No consolidation, pleural effusion or pneumothorax. No acute fracture. IMPRESSION: 1. No acute findings. This document has been electronically signed by: Leana Christianson MD on 05/28/2025 17:25:24
[2025-05-28 15:28] VITALS: BP 142/82; PULSE 135; RESP 24; TEMP 37.9; O2SAT 94; BMI 39.9
--- NOTE | 2025-05-28 15:29 | ED.SOB ---
HPI - SOB/Dyspnea General Chief Complaint: Dyspnea Stated Complaint: SOB, fever Time Seen by Provider: 05/28/25 16:15 Source: patient, RN notes reviewed and old records reviewed Mode of arrival: ambulatory Limitations: no limitations History of Present Illness ED Provider: Artur ROBLES Narrative: 24-year-old female with a past medical history significant for asthma presents for evaluation of shortness of breath. Patient reports worsening symptoms over last 2 days. She reports wheezing, coughing and shortness of breath She has been using her albuterol inhaler as well as nebulizers at home with no significant improvement Denies any fevers or chills. She reports several similar episodes in the past that required hospital treatment She has never been intubated for asthma No other complaints or concerns at this time Related Data Previous Rx's ?Medication ?Instructions ?Recorded fluticasone propionate 50 1 spray intranasal DAILY #16 grams 01/27/22 mcg/actuation nasal spray,suspension albuterol sulfate 2.5 mg/0.5 mL 5 mg inhalation Q6H PRN 11/22/23 solution for nebulization bronchospasm 30 days #30 ea nebulizer and compressor #1 ea 11/22/23 cetirizine 10 mg tablet (Zyrtec) 10 mg PO DAILY PRN allergy 01/25/25 symptoms 2 months #60 tabs albuterol sulfate 90 mcg/actuation 2 puff PO QID PRN for wheezing 05/10/25 aerosol inhaler #6.7 ea prednisone 20 mg tablet 40 mg (2 x 20 mg) PO DAILY #8 tabs 05/28/25 Allergies Allergy/AdvReac Type Severity Reaction Status Date / Time No Known Allergies Allergy Verified 05/28/25 15:31 Review of Systems Constitutional: Constitutional: Denies body ache(s), Denies chills, Denies fever(s) and Denies headache(s) ENT: Denies headache(s) Cardiovascular: Cardiovascular: Denies chest pain, Reports dyspnea and Reports dyspnea on exertion Respiratory: Respiratory: Reports cough, Reports dyspnea, Reports dyspnea on exertion and Reports wheezing Gastrointestinal: Gastrointestinal: Denies abdominal pain, Denies nausea and Denies vomiting Musculoskeletal: Musculoskeletal: Denies back pain Integumentary/Breasts: Skin/Breast: Denies rash Neurologic: Denies headache(s) Allergic/Immunologic: Allergic/Immunologic: Reports wheezing PMFSH Past Medical History Medical History (Updated 05/28/25 @ 18:43 by Stoney Siddiqui) Morbid obesity with BMI of 40.0-44.9, adult History of rib fracture Left knee injury Asthma Seasonal allergies Asthma Surgical History No pertinent past surgical history Family History Family History Mother No problems noted. Father Bipolar disorder Alcoholic Sister No problems noted. Other Mental health disorder Social History Social History (Updated 11/22/23 @ 09:31 by SANTINO Quintanilla) Housing: Apartment Unable to assess alcohol history related to: Unknown Alcohol intake: never Patient Tobacco Use Status: Former Tobacco user e-Cigarette/Vaping Use: Former Use Second Hand Smoke Exposure: No Use of substances other than those prescribed or required for medical reasons: Unknown Advance Directives: No Advance Directives Information Provided: No service: No Current occupational status: unemployed Cognitive needs: No Hearing needs: No Vision needs: Yes (glasses) Physical Exam Vital Signs: Vital Signs: Last Vital Signs Temp 100.3 F 05/28/25 15:28 Pulse 119 H 05/28/25 16:05 Resp 22 H 05/28/25 16:05 BP 142/82 H 05/28/25 15:28 Pulse Ox 94 05/28/25 15:28 O2 Del Method Room Air 05/28/25 15:28 BMI result Body Mass Index 39.9 Const: General: healthy appearing, comfortable, no acute distress, alert and awake Nutritional Appearance: well nourished Orientation/consciousness: patient oriented x3 HEENT: Head: Yes normocephalic and Yes atraumatic Eyes: Eyelids: Yes eyelids normal Conjunctivae: conjunctivae normal Sclerae: sclerae normal Corneas: corneas normal Pupils: Equal, round and reactive pupils present EOM: EOMs intact bilaterally Neck: Neck: Yes full ROM Resp: Effort & Inspection: normal respiratory effort and able to speak in complete sentences Auscultation: wheezes expiratory wheezes (Primarily expiratory), inspiratory wheezes and throughout Cardio: Rate: regular rate Rhythm: regular rhythm Skin: General skin exam: elasticity normal Neuro: General: patient oriented x3 Cranial nerves: Yes Equal, round and reactive pupils present and Yes Bilaterally intact EOM present Cognition (Neuro): normal cognition Course Course Course Narrative: This is an RME: Additional HPI, ROS, PE not included below will be deferred to primary provider. RME assessment and note performed by: Lena Davis PA-C This is a 25-[id number]-rlg-female who presents to the ER with complaints of shortness of breath, fevers. Has been using inhalers very often without relief. Plan: Labs, EKG, CXR, viral swabs, further ER eval needed Reevaluation(s) Reevaluation #1: Patient reports feeling much better, her wheezing has greatly improved. She did have a high random glucose of 185 and I discussed this with the patient, she should follow up with the primary doctor for a fasting glucose and an A1c Time: 18:41 Medications Administered Discontinued Medications Generic Name Dose Route Start Last Admin Trade Name Freq PRN Reason Stop Dose Admin Acetaminophen 975 mg 05/28/25 15:31 05/28/25 15:35 Acetaminophen 325 Mg Tablet PO 05/28/25 15:32 975 mg ONCE ONE Administration Albuterol Sulfate 5 mg/ 0 mg 05/28/25 16:00 05/28/25 16:03 Albuterol/Ipratropium 3 ml INHALE 05/28/25 16:01 1 each ONCE ONE Administration Magnesium Sulfate 2 gm in 50 mls @ 150 mls/hr 05/28/25 16:24 05/28/25 16:49 Magnesium Sulfate/H2o IV 05/28/25 16:43 150 mls/hr ONCE ONE Administration Lactated Ringer's 1,000 mls @ 999 mls/hr 05/28/25 16:30 05/28/25 18:22 Lr IV 05/28/25 17:30 Infused .Q1H1M CITLALI Infusion Methylprednisolone Sodium Succinate 125 mg 05/28/25 16:24 05/28/25 16:44 Methylprednisolone Sod Succ 125 Mg/2 Ml Vial IVPUSH 05/28/25 16:25 125 mg ONCE ONE Administration Medical Decision Making Medical Decision Making [facility] Narrative: 24-year-old female with a history of asthma presents for evaluation of shortness of breath and wheezing. She believes she is having an asthma flare. She is quite wheezy on exam though she is not hypoxic. She has given herself 3 nebulizers at home and albuterol without improvement. Plan for chest x-ray, labs, additional nebulizer, Solu-Medrol and magnesium. She has no fever to suggest pneumonia, this is likely an asthma exacerbation possibly related to allergies Differential Diagnosis Differential Diagnoses: The differential diagnosis associated with the presentation includes Asthma exacerbation Bronchitis Pneumonia Upper respiratory infection COVID-19 Admission/Observation Consideration of admission/observation: Escalation of care including admission/observation considered Lab Data MDM Lab Attestation statement: I reviewed the patient's lab results. No leukocytosis or significant anemia. Normal platelet count. No significant electrolyte abnormalities warranting intervention. The patient's random glucose is 185 05/28/25 16:35 05/28/25 16:35 Labs: Lab Results 05/28/25 Range/Units 16:35 WBC 10.4 (4.8-10.8) X10*3/uL RBC 4.72 (4.20-5.50) X10*6/uL Hgb 11.9 L (12.0-16.0) g/dl Hct 36.1 L (37.0-47.0) % MCV 76.5 L (80.0-98.0) fL MCH 25.2 L (27.0-33.0) pg MCHC 33.0 (31.0-35.0) g/dl RDW 16.8 H (11.0-16.0) % Plt Count 347 (160-400) X10*3/uL MPV 9.3 L (9.4-12.3) fL Immature Gran % (Auto) 0.4 (0.0-0.4) % Neut % (Auto) 74.1 H (45-73) % Lymph % (Auto) 18.6 L (20-40) % Schuyler % (Auto) 5.2 (2-11) % Eos % (Auto) 1.4 (0-4) % Baso % (Auto) 0.3 (0-2) % Lymph # (Auto) 1.9 (1.2-4.9) X10*3/uL Schuyler # (Auto) 0.5 (0.1-1.2) X10*3/uL Eos # (Auto) 0.2 (0.0-0.4) X10*3/uL Baso # (Auto) 0.0 (0.0-0.2) X10*3/uL Abs Immat Gran (auto) 0.04 H (0.00-0.03) X10*3/uL Absolute Neuts (auto) 7.7 (2.0-8.3) x10*3/uL Absolute Nucleated RBC 0.000 (0.0-0.012) X10*3/uL Nucleated RBC % (auto) 0.0 (0.0-0.2) /100WBC Sodium 137 (135-145) mmol/L Potassium 3.3 (3.3-5.1) mmol/L Chloride 103 (96-108) mmol/L Carbon Dioxide 22 (22-29) mmol/L Anion Gap 15 (12-20) BUN 7 L (9-16) mg/dL Creatinine 0.64 (0.5-1.4) mg/dL Estim Creat Clear Calc 154.6 Estimated GFR > 60 Random Glucose 185 H (60-115) mg/dL Calcium 8.9 (8.4-10.2) mg/dL Magnesium 1.9 (1.6-2.6) mg/dL Total Bilirubin 0.4 (0.0-1.0) mg/dL AST 27 (5-31) U/L ALT 25 (0-31) U/L Alkaline Phosphatase 98 (39-117) U/L Total Protein 7.5 (6.5-8.0) g/dL Albumin 4.3 (3.5-5.0) g/dL Beta HCG, Quant < 2 mIU/mL COVID-19 (SANDRINE) Negative (Negative) COVID-19 Clin Com See Note Influenza Type A (BLANCA) Negative (Negative) Influenza Type B (BLANCA) Negative (Negative) Influenza A & B Note See Note Independent Interpretation I performed an independent interpretation of an: Plain X-Ray (No infiltrates or consolidation) Radiology Impression Discussion of test interpretation with radiology: I have reviewed the radiologist's reading. Radiologist Impression: Findings: Heart size is normal. No consolidation, pleural effusion or pneumothorax. No acute fracture. IMPRESSION: 1. No acute findings. This document has been electronically signed by: Leana Christianson MD on 05/28/2025 17:25:24 Discharge Plan Discharge Clinical Impression: Acute asthma exacerbation Patient Disposition: Home, Self-Care Instructions: Asthma (ED) Additional Instructions: Your workup in the emergency department today was reassuring. This includes your blood work, chest x-ray, viral swabs are negative. The your random glucose was 185 which is elevated. I recommend that you follow up with your primary doctor for a fasting glucose and HbA1c Avoid excessive sugary intake Take prednisone 40 mg daily for the next 4 days to help with your asthma. You may also benefit from an [id number]-ufswacg allergy medication Use your inhaler and nebulizers as prescribed Prescriptions: New prednisone 20 mg tablet 40 mg PO DAILY Qty: 8 0RF No Action cetirizine [Zyrtec] 10 mg tablet 10 mg PO DAILY PRN (Reason: allergy symptoms) 60 Days Qty: 60 2RF albuterol sulfate 90 mcg/actuation HFA aerosol inhaler 2 puff PO QID PRN (Reason: for wheezing) Qty: 6.7 2RF fluticasone propionate 50 mcg/actuation spray,suspension 1 spray intranasal DAILY Qty: 16 0RF Rx Instructions: administer into each nostril (DME) nebulizer and compressor Device See Rx Instructions .Route Qty: 1 0RF Rx Instructions: As directed albuterol sulfate 2.5 mg/0.5 mL solution for nebulization 5 mg inhalation Q6H PRN (Reason: bronchospasm) 30 Days Qty: 30 0RF Stand Alone Forms: Work/School Release Print Language: Namibian
[2025-05-28] MEDS: Albuterol Sulfate 5 MG, Albuterol/Iprat 2.5/0.5MG 3 ML 3 ML INHALE (16:03)
[2025-05-28 16:05] VITALS: PULSE 119; RESP 22; O2SAT 93
[2025-05-28 16:49] LABS: MANUAL DIFF FLAG NO
[2025-05-28] MEDS: Magnesium Sulfate/H2O 2 GM/50 ML PIGGYBACK IV (16:49)
[2025-05-28] MEDS: Lactated Ringers 1,000 ML 999 ML IV (16:50)
[2025-05-28 16:51] LABS: Hematocrit 36.1 % (37.0-47.0); Hemoglobin 11.9 g/dl (12.0-16.0); Imm Gran Abs Auto 0.04 X10*3/uL (0.00-0.03); Imm Gran Pct Auto 0.4 % (0.0-0.4); Lymphocytes Absolute Auto 1.9 X10*3/uL (1.2-4.9); Mean Corpuscular HGB Conc 33.0 g/dl (31.0-35.0); Mean Corpuscular Hemoglobin 25.2 pg (27.0-33.0); Mean Corpuscular Volume 76.5 fL (80.0-98.0); NRBC Abs Auto 0.000 X10*3/uL (0.0-0.012); NRBC Pct Auto 0.0 /100WBC (0.0-0.2); Platelet Count 347 X10*3/uL (160-400); Red Blood Count 4.72 X10*6/uL (4.20-5.50); White Blood Count 10.4 X10*3/uL (4.8-10.8)
[2025-05-28 17:06] LABS: COVID-19 Test Negative (Negative); IDNOW Serial# 55D5AD1C; IDNOW Serial# 58CA691E; Influenza B2 Negative (Negative)
--- NOTE | 2025-05-28 17:10 | PC.NURSE ---
Back documentation IVF paused, pt to X-ray
[2025-05-28 17:13] LABS: Alanine Aminotransferase 25 U/L (0-31); Albumin Level 4.3 g/dL (3.5-5.0); Alkaline Phosphatase 98 U/L (39-117); Anion Gap 15 (12-20); Aspartate Amino Transferase 27 U/L (5-31); Blood Urea Nitrogen 7 mg/dL (9-16); Calcium 8.9 mg/dL (8.4-10.2); Carbon Dioxide 22 mmol/L (22-29); Chloride 103 mmol/L (96-108); Creatinine Clr Calc Pharmacy 154.6; Estimated Glomerular Filt Rate > 60; Magnesium 1.9 mg/dL (1.6-2.6); Potassium 3.3 mmol/L (3.3-5.1); Sodium 137 mmol/L (135-145); Total Protein 7.5 g/dL (6.5-8.0)
[2025-05-28 18:57] VITALS: BP 110/66; PULSE 109; RESP 20; TEMP 37.1; O2SAT 95
--- OUTSIDE RECORDS SUMMARY | 2025-05-28 19:00 | XMS_ITS | Clinical Summary ---
Author Organization [facility] Address [address] [address] Phone Care Team Providers Care Marketing Sales Consultant Name Role Phone Jenniffer Hill MD Primary Care Provider Allergies No known active allergies Medications albuterol 90 mcg/actuation inhaler INHALE 2 PUFFS BY MOUTH 4 TIMES A DAY NEEDED FOR WHEEZING 07/23/2022 Active calcium carbonate (TUMS ORAL) Take by mouth. Active acetaminophen (TYLENOL) 325 mg tablet Take 3 tablets (975 mg total) by mouth every 6 (six) hours as needed. 0 03/25/2023 Active docusate sodium (COLACE) 100 MG capsule Take 1 capsule (100 mg total) by mouth 2 (two) times a day. 30 capsule 1 03/25/2023 Active ibuprofen (ADVIL,MOTRIN) 600 MG tablet Take 1 tablet (600 mg total) by mouth every 6 (six) hours as needed. 30 tablet 1 03/25/2023 Active ferrous sulfate 325 mg (65 mg havasupai iron) tablet Take 1 tablet (325 mg total) by mouth daily with breakfast. 30 tablet 1 03/25/2023 Active Active Problems Problem Noted Date Diagnosed Date Normal intrauterine , antepartum 2022 Anemia affecting in third trimester Overview (02/19/2023): Hgb 10.3 at 35 weeks Anemia defined as: Hgb < 11 1st & 3rd trimester Hgb < 10.5 2nd trimester consider checking serum ferritin to confirm iron deficiency Other testing as indicated (hgb electrophoresis or iron studies) Iron deficiency anemia- begin Fe supplement: 60 mg elemental Fe daily (BID or TID if severe anemia), consider stool softener and vitamin C CBC, ferritin, in 2-6 wks consider IV iron infusion (FEREHEME 510mg on CBC or cancer center) if severe, not able to take oral iron, or not improving Heme consult if anemia severe (< 8) or etiology is unclear Assessment & Plan (02/28/2023 10:03 AM EDT): Discussed mild anemia based on most recent bloodwork, recommended beginnin iron supplement, rx to pharmacy. Iron-rich foods also reviewed. Recheck on admission to CBC. Thrombocytosis 09/27/2022 Overview (09/27/2022): Plt 495k at beginning of Recommended repeating with next PNV - order placed Nausea and vomiting in 09/22/2022 Assessment & Plan (09/23/2022 8:44 PM EST): Has been beginning to feel better but does have excess saliva and has to spit in a cut. We discussed trying hard candies, sour candies, B6 candies, increase hydration. Could add Unisom if nausea worsens again but Bernice is feeling like things are improving. Encounter for supervision of normal first in third trimester 07/29/2022 Overview (03/25/2023): CNM Referred to [facility] 09/23/22 No OB-CMI score has been filled out for this encounter. Group PN care-- very interested Rh Pos GC/Chlam Neg PAP done 10/28/22 Tdap declines Flu declines COVID-19 declines Hgb 10.3 GTT - not done. Random glu 112, A1C 5.6 in third trimester, see visit note 28 wk Repeat RPR neg GBS neg PPBC condoms, but during PP rounds, learned more about benefits of Mirena and is interested in discussing again at 6w PP. screening NT normal Baby Francia Assessment & Plan (03/21/2023 5:18 PM EDT): Thinks she has been in early labor on and off for 3 days. More regular over the past day. Has been timing contractions, at some times they have been q 5-8 min. Not very strong just yet. She has had a little brown spotting. Denies leaking of fluid. Baby is moving well. She only slept 3 hours last night and napped 30 min today. Wondering when this pattern will change and active labor will develop. SVE 2-3/90/-2, membranes swept. Recommended she try to get as much rest as possible tonight, consider OTC sleep aid. Advised she may contact on-call explosive ordnance handler if prodromal pattern continues and she needs some rest. Postdates plan of care discussed. She is unsure if/when she wants to schedule induction. She'd like to see if she goes into labor in the next 24 hours; if not, she will contact practice to schedule IOL or BPP and visit at 41 weeks. IOL process and timelines reviewed. Assessment & Plan (03/14/2023 4:02 PM EDT): Feels well. Really hoping to labor soon. Feels comfortable with labors s/s and reasons to call. Requests SVE with membrane sweep, 1-2/60/-2, very soft and anterior. Postdates plan of care reviewed. Assessment & Plan (02/28/2023 4:49 PM EDT): Here with Emmett. She is nesting! Getting everything ready at home, has her bag packed for the hospital. Has been hand expressing and storing colostrum. PP BCM discussed. Has only ever used OCPs, but prefers not to interfere with her ovulatory cycle. Reviewed fertility while , recommendation for at least 18 months spacing between deliveries. She thinks she is likely to use condoms. GBS neg. Assessment & Plan (02/28/2023 10:05 AM EDT): Here with her partner. She feels well. Baby has been active. GBS today. Reviewed s/s of labor and contacting practice. Discussed high normal A1C and random glucose, advised that she is likely to have some glucose intolerance. Unable to definitively rule out GDM. We discussed at this late gestational age there may be limited impact of CEDE referral, recommended she try to follow ADA diet loosely as a preventative measure - info given in AVS and reviewed in appt. S>D, U/S ordered for growth particularly given unknown GDM status. Assessment & Plan (02/19/2023 9:43 PM EDT): Bernice is doing well. She is enjoying working with [facility] and has been speaking with her counselor about planning for . She is strongly motivated for unmedicated childbirth, has been reading about nitrous and may be interested, plans to labor at home as long as possible. We discussed how midwives will communicate with her and support her goals during labor. Discussed that she still has not completed 28-wk labs. As time needed for test seemed to be a barrier, recommended she complete an A1C as well as random glucose now along with RPR and CBC. At this late GA, if testing is abnormal will offer CEDE consult but may also just focus on dietary counseling and plan for some POC testing during labor. Fetus seems vertex today but somewhat difficult to assess, consider ordering position check at n.v. Assessment & Plan (01/28/2023 4:39 PM EDT): Samuel here with her partner. Feeling well. Baby very active on exam Pt denies vb, lof, ctxs Working closely with [facility] and feels well informed/supported. 3T labs pending, pt has transportation challenges, but thinks she can have it done tomorrow--encouraged! Discussed call system, where to go in labor. FAVIOLA 2 wks. Assessment & Plan (01/21/2023 1:04 PM EDT): Bernice is feeling fairly well. Baby has been active. She has not completed GTT/CBC/RPR yet, we reviewed importance of this screening and risks of undiagnosed anemia, GDM. She will complete these soon. Reviewed third trimester warning signs and reasons to call. Assessment & Plan (01/05/2023 8:51 AM EDT): Bernice is doing well today. She is feeling regular movement. No questions/concerns. Tdap given. Reminded to complete second trimester labs. FAVIOLA in 2 weeks. Assessment & Plan (12/16/2022 4:33 PM EDT): Bernice reports feeling very well. Baby active, no s/sx of ptl Had an asthma attack a few weeks ago--went to ED for treatment, no further sx. We discussed importance and treatment when necessary, do not delay. Pt having weekly visits from [facility] which she enjoys Looking forward to FAVIOLA 2 wks 3 T labs next week Assessment & Plan (11/08/2022 5:05 PM EST): Bernice is here soon after last appointment due to scheduling confusion; was supposed to have only follow up ultrasound. She feels fine and has no ob concerns today. She is excited to perceive FM within the past few days. windows desktop engineer is aware and will expedite follow up ultrasound scheduling. Assessment & Plan (10/28/2022 5:04 PM EST): Bernice feeling well PE completed today. Pap obtained and sent Info given on GPC and CBE Pt has already connected to [facility] FAS unable to be completed, rescheduled. FAVIOLA 4 wks. Assessment & Plan (09/23/2022 8:42 PM EST): Bernice is a 21 y.o. at 14w3d doing well. Here with her partner, Emmett. They are coming up to their 7 year anniversary! A: IUP at 14 4/7 weeks - MELBA changed by first trimester US P: Reviewed normal labs, including NT Bernice and Emmett are asking about bloodwork to determine sex of the baby, I reviewed that we do not typically do both NT and CFDNA but they can check and see if insurance will cover - they will call back if they want to move forward with that plan Reviewed option for [facility] - they may be interested - will refer so they can have more info. Plan for anatomy US with NV Pt was not prepared for Pap and Breast exam at [facility] - please do at [facility]. Remainder of PE done and normal Asthma affecting in first trimester Overview (07/29/2022): Pt uses albuterol prn, usually every 1-2 days Pt recently seen in the ER for asthma exacerbation-- was treated with a course of steroids. Never intubated or hospitalized Has upcoming appt with PCP who manages her asthma At intake: discussed importance of breathing well in , s/sx of poor asthma control and when to seek emergent care. Assessment & Plan (09/23/2022 8:39 PM EST): Some wheezing noted on auscultation of lungs at [facility], cleared with a cough Using inhaler PRN, will follow up with PCP Obesity affecting in first trimester 1 09/28/2021 Overview (07/29/2022): Obesity in (BMI >30) BMI at Intake 39.86 Date Obesity plan of care discussed BMI > 50 (at 36 weeks or before) transfer to tertiary care * If BMI 40 or greater discuss policy w patient * first trimester screen for diabetes - HgbA1c or 1-hr glucose tolerance test * Nutrtion counseling * 11-20lb weight gain * Growth sono q 4 wks if fundal height not reliable, after 28 weeks * Induction only if indicated * PP lovenox according to guidelines Assessment & Plan (01/21/2023 1:03 PM EDT): U/S today due to difficulty assessing growth with Gerardo's at a previous appt; growth at 37th %ile. Will continue to assess fundal height and order further growth assessments PRN. Assessment & Plan (12/16/2022 4:33 PM EDT): Difficult to assess growth by vasu growth us ordered. Immunizations Immunization Administration Dates Next Due PPD Test 08/02/2022 Family History Relation Status Comments Father Mother Alive Social History Tobacco Use Types Packs/Day Years Used Date Smoking Tobacco: Never Smokeless Tobacco: Never Tobacco Cessation:Counseling Given: Not Answered Alcohol Use Standard Drinks/Week Comments Not Currently 0 (1 standard drink = 0.6 oz pur e alcohol) Education Answer Date Recorded Are you interested in more education? Not on billie e 01/07/2023 Are you concerned about learning? Not on file 01/07/2023 No 01/07/2023 No 01/07/2023 Digital Access Answer Date Recorded No 02/07/2023 No 02/07/2023 Reliable internet access at home? Not on file 02/07/2023 Device with a working camera? Not on file Intimate Partner Violence Answer Date R ecorded Are you denied basic needs s uch as food, clothing, or medical care? No 03/25/2023 In the past 12 months have y ou been in a relationship with a person who hurts, threatens, or tries to control you? No 03/25/2023 Are you denied basic needs s uch as food, clothing, or medical care? No 03/25/2023 In the past 12 months have y ou been in a relationship with a person who hurts, threatens, or tries to control you? No 03/25/2023 Comments No Sex and Gender Information Value Date Recorded Sex Assigned at Female 07/20/2022 11:28 PM EST Legal Sex Female 4:47 PM EDT Gender Identity Female 03/23/2023 3:51 AM EDT Sexual Orientation Straight 03/22/2023 3: 47 PM EDT Last Filed Vital Signs Vital Sign Reading Time Taken Comments Blood Pressure 118/81 03/25/2023 10:35 AM EDT Pulse 105 03/25/2023 10:35 AM EDT Temperature 36.9 C (98.4 F) 03/25/2023 10:30 AM EDT Respiratory Rate 18 03/25/2023 10:30 AM EDT Oxygen Saturation 96% 03/25/2023 10:35 AM EDT Inhaled Oxygen Concentration - - Weight 109.3 kg (241 lb) 03/22/2023 11:42 PM EDT Height 160 cm (5' 3 ) 03/22/2023 11:21 PM EDT Body Mass Index 42.69 03/22/2023 11:21 PM EDT Plan of Treatment Health Maintenance Due Date Last Done Comments Adult Td,Tdap Booster 2000 DEPRESSION SCREENING 2012 SMOKING Hx and SMOKELESS TOB ACCO SCREENING 2013 HPV VACCINES (1 - 3-dose series) 2015 PNEUMOCOCCAL VACCINES (0-49 years) (1 of 2 - PCV) 2019 CHLAMYDIA SCREENING 07/29/2023 07/29/2022 INFLUENZA VACCINE (#1) 2025 COVID-19 VACCINE (2023-2 5 season) 2025 PAP SMEAR 10/28/2025 10/28/2022 HEPATITIS C SCREENING Completed 08/11/2022 HIV ONE-TIME SCREENING (18-6 5 YEARS) Completed 08/11/2022 HEPATITIS A VACCINES Aged Out No long er eligible based on patient's age to complete this topic HIB VACCINES Aged Out No longer eligi ble based on patient's age to complete this topic MENINGOCOCCAL VACCINES (ACWY) Aged Out No longer eligible based on patient's age to complete this topic MENINGOCOCCAL VACCINES (B) Aged Out N o longer eligible based on patient's age to complete this topic Medical Devices Not on file Procedures Procedure Name Priority Date/Time Associated Diagnosis Comments PAP TEST Routine 10/28/2022 12:00 AM EST HEPATITIS C ANTIBODY, QUALITATIVE Routine 08/11/2022 3:09 PM EST Need for hepatitis C screening test CHLAMYDIA TRACHOMATIS AND NEISSERIA GONORRHOEAE NUCLEIC ACID DETECTION Routine 07/29/2022 4:26 PM EST Amenorrhea from Last 3 Months or Most Recently Relevant to Health Maintenance Results * Pap Test (10/28/2022 12:00 AM EST) 10/28/2022 11/01/2022 10: 31 AM EST Narrative SEE NARRATIVE - 11/03/2022 12:41 PM EST [address] [address] Packing And Final Assembly Supervisor: Anitha Mckay MD COMPUTER GAME DESIGNER Cytology Report FINAL DIAGNOSIS A. PAP SMEAR (SUREPATH) CE: SPECIMEN ADEQUACY: Satisfactory for evaluation; transformation zone present. INTERPRETATION: NEGATIVE FOR INTRAEPITHELIAL LESION OR MALIGNANCY. Reactive changes. Electronically Signed Out By: MAR Pelayo MD(ASCP) By his/her signature above, the pathologist listed as making the Final Diagnosis certifies that he/she has personally reviewed this case and confirmed or corrected the diagnosis. The Pap test is a screening test primarily for squamous cancers and precursors and has associated false-negative and false-positive results. New technologies such as liquid-based preparations may decrease but will not eliminate all false-negative results. Regular sampling and follow-up of unexplained clinical signs and symptoms are recommended to minimize false negative results. CLINICAL HISTORY Date of Last Menstrual Period: Not Provided Menstrual History: Other Clinical Conditions: Screening Pap SPECIMEN SOURCE A: PAP SMEAR (SUREPATH) CE Patient Name: BERNICE BANKS : 2000 (Age: 22) Sex: F Institution: [facility] Location: [facility] Date of Collection: 10/28/2022 Date of Reported: 11/03/2022 12:41 Results to: Viktoriya Covarrubias CNM Viktoriya Covarrubias CNM CYTOLOGY ORDERABLES Final Result Performing Organization Address City/[facility]/ZIP Co de Phone Number SEE NARRATIVE * Hepatitis C antibody, qualitative (08/11/2022 3:09 PM EST) HCV NON-REACTIV E NON-REACTI VE [facility] Blood 08/11/2022 3:09 PM EST 08/11/2022 3:16 PM EST Viktoriya Covarrubias CNM LAB BLOOD ORDERABLES Final Result Performing Organization Address [facility] Co de Phone Number [address] [address] * Chlamydia Trachomatis and Neisseria Gonorrhoeae Nucleic Acid Detection (07/29/2022 4:26 PM EST) CHLAMYDIA TRACHOMATIS Not Detected Not Detected [facility] NEISERIA GONORRHOEAE Not Detected Not Detected [facility] SPECIMEN TYPE URINE [facility] Urine (Urine) 07/29/2022 4:2 6 PM EST 07/29/2022 6:32 PM EST Viktoriya Covarrubias CNM NON CULTURE MICROBIOLOGY F inal Result Performing Organization Address City/[facility]/ZIP Co de Phone Number [address] [address] from Last 3 Months or Most Recently Relevant to Health Maintenance Insurance [employer] [facility] Address: [facility] [address] [place] [address] [facility] [employer] [facility] [employer] B[employer] B[employer] [facility] [employer] B[employer] [facility] [employer] [facility] Advance Directives For more information, please contact: [phone] (9AM - 5PM [facility], Tuesday-Tuesday) * Full Code (Latest Code Status on File) Date Activated Date Inactivated Comments 03/23/2023 5:36 PM Question Answer Comments Code Status Confirmed With: Patient * Full Code Date Activated Date Inactivated Comments 03/22/2023 4:18 PM 03/23/2023 5:36 PM Question Answer Comments Code Status Confirmed With: Patient Care Teams Marketing Sales Consultant Relationship Specialty Start Date End Date Jenniffer Hill MD [address] [place] [address] PCP - General Internal Medicine 07/20/22 Additional Source Comments The information contained in this document represents components of the legal health record. It is not the complete legal health record.[facility]
--- OUTSIDE RECORDS SUMMARY | 2025-05-28 19:00 | XMS_ITS | Encounter Summary ---
Author Organization [facility] Address [address] [place] [address] Phone Care Team Providers Care Scrub Nurse Name Role Phone Jenniffer Hill MD Primary Care Provider Encounter Details Date Type Department Care Team (Latest Contact Info) Description 08/11/2022 Ancillary Orders [facility] [address] [place] [address] Viktoriya Covarrubias CNM [address], [address] [place] [address] [email or web address] Nuchal translucency of fetus on ultrasound Social History Tobacco Use Types Packs/Day Years Used Date Smoking Tobacco: Former Cigarettes Smokeless Tobacco: Never Alcohol Use Standard Drinks/Week Comments Not Currently 0 (1 standard drink = 0.6 oz pur e alcohol) Comments Yes Sex and Gender Information Value Date Recorded Sex Assigned at Female 07/20/2022 11:28 PM EST Legal Sex Female 4:47 PM EDT Gender Identity Female 03/23/2023 3:51 AM EDT Sexual Orientation Straight 03/22/2023 3: 47 PM EDT documented as of this encounter Plan of Treatment Not on file documented as of this encounter Results * US OB LESS THAN 14 WEEKS TRANSABDOMINAL AND TRANSVAGINAL (08/11/2022 2:52 PM EST) Anatomical Region Laterality Modality Abdomen, Pelvis, Uterus/Adnexa U ltrasound 08/11/2022 5:16 PM EST Impressions 08/11/2022 6:27 PM EST 1. Single live IUP measuring almost 4 weeks less than expected by LMP with a sonographic EGA of 8w3d and an MELBA of March 20, 2023. NT could not be done today secondary to early gestational age. 2. Normal appearing ovaries with a right sided corpus luteal cyst. Narrative 08/11/2022 6:27 PM EST Procedure: US OB LESS THAN 14 WEEKS TRANSABDOMINAL AND TRANSVAGINAL 08/11/2022 2:12 PM US Indications: Nuchal Translucency Testing, ERA. Comparison: No relevant recent comparisons. Maternal age: 21 years. Technique: Transabdominal was performed. In addition, transvaginal imaging was performed to better evaluate the adnexa and ovaries. Color Doppler and M-mode imaging was performed to assess vascularity. FINDINGS: Gestational sac and number: 1. FHR: 172.0 bpm CRL: 1.84 cm Yolk Sac: 3.40 mm Reported LMP: [id number] Gestational Age by LMP: 12 weeks 1 day(s) Ultrasound EGA: 8 weeks 3 day(s) Ultrasound MELBA: [id number] Established MELBA: [id number] Uterus and ovaries: The myometrium is homogeneous. The ovaries are unremarkable. Right CLC. No adnexal masses seen. Cervical Length: 3.35 cm Tech Comments: Single live IUP. Size of embryo is less than dates by LMP. Procedure Note Aroldo Roman MD - 08/11/2022 Procedure: US OB LESS THAN 14 WEEKS TRANSABDOMINAL AND [id number]/30/2022 2:12 PM US Indications: Nuchal Translucency Testing, ERA. Comparison: No relevant recent comparisons. Maternal age: 21 years. Technique: Transabdominal was performed. In addition, transvaginalimaging was performed to better evaluate the adnexa and ovaries. ColorDoppler and M-mode imaging was performed to assess vascularity. FINDINGS: Gestational sac and number: 1. FHR: 172.0 bpm CRL: 1.84 cm Yolk Sac: 3.40 mm Reported LMP: [id number] Gestational Age by LMP: 12 weeks 1 day(s) Ultrasound EGA: 8 weeks 3 day(s) Ultrasound MELBA: [id number] Established MELBA: [id number] Uterus and ovaries: The myometrium is homogeneous. The ovaries areunremarkable. Right CLC. No adnexal masses seen. Cervical Length: 3.35 cm Tech Comments: Single live IUP. Size of embryo is less than dates by LMP. IMPRESSION: 1. Single live IUP measuring almost 4 weeks less than expected by LMPwith a sonographic EGA of 8w3d and an MELBA of March 20, 2023. NT could notbe done today secondary to early gestational age. 2. Normal appearing ovaries with a right sided corpus luteal cyst. us Viktoriya Covarrubias CN IMG US OBSTETRIC Final Res ult documented in this encounter Visit Diagnoses Diagnosis Nuchal translucency of fetus on ultrasound documented in this encounter Care Teams Scrub Nurse Relationship Specialty Start Date End Date Jenniffer Hill MD [address] [place] [id number] PCP - General Internal Medicine 07/20/22 documented as of this encounter Additional Source Comments The information contained in this document represents components of the legal health record. It is not the complete legal health record.[facility]
== END 2025-05-28 19:00 | disposition home or self-care (01) ==
PROVIDERS: Physician Assistant Medical; Emergency Provider Student in an Organized Health Care Education/Training Program; PCP Internal Medicine
DX: J45.901 Unspecified asthma with (acute) exacerbation (principal); R06.02 Shortness of breath; Z03.818 Encounter for observation for suspected exposure to other biological agents ruled out
CPT/HCPCS: 71046; 80053; 83735; 84702; 85025; 87502; 87635; 94640; 96365; 96366; 96375; 99284; J2919; J3475; J7120

== ENCOUNTER → 2025-05-28 15:32 | Outpatient (BNV) | payer OTHER, SELFPAY | PROVIDERS: Emergency Provider Student in an Organized Health Care Education/Training Program; PCP Internal Medicine; Visit Provider Specialist | DX: R06.02 Shortness of breath (principal) | CPT/HCPCS: 71046 ==